=== PATIENT | male | born 1930 | race African-American/Black ===

== ENCOUNTER 2018-10-11 09:25 | Emergency (ER) | payer BC, MEDICARE ==
[~2018-10-11] VITALS: Ht 170.2 cm; Wt 75.0 kg
[~2018-10-11 09:25] MED LIST: ASPI-1159 PO; ATOR-2 PO; DORZ10DR8 OP; ESCI10TA54 PO; HYDR-2510 PO; LOSA100T14 PO; POTA20TA82 PO
[2018-10-11] MEDS ORDERED: TRAMADOL 50MG TABLET PO ONE (10:45)
[2018-10-11 11:02] VITALS: BP 153/72
== END 2018-10-11 12:03 | disposition home or self-care (01) ==
LOC: ER 11:26
DX: S46.911A Strain of unspecified muscle, fascia and tendon at shoulder and upper arm level, right arm, initial encounter (principal); X50.0XXA Overexertion from strenuous movement or load, initial encounter; Y93.89 Activity, other specified; Y92.015 Private garage of single-family (private) house as the place of occurrence of the external cause
CPT/HCPCS: 99283

== ENCOUNTER 2019-09-19 11:49 | Emergency (ER) | payer BC ==
[~2019-09-19] VITALS: Ht 170.2 cm; Wt 77.0 kg
[~2019-09-19 11:49] MED LIST changes: -ASPI-1159 PO; +ASPI-1497 PO; -ESCI10TA54 PO; +ESCI10TA61 PO; -LOSA100T14 PO; +LOSA100T32 PO
[2019-09-19 15:25] VITALS: BP 174/78
== END 2019-09-19 18:39 | disposition left against medical advice (07) ==
LOC: ER 11:49
DX: Z53.21 Procedure and treatment not carried out due to patient leaving prior to being seen by health care provider (principal)